=== PATIENT | female | born 1980 | race Caucasian/White ===

== ENCOUNTER 2023-05-02 00:14 | Emergency (ER) | payer BC, OTHER ==
[~2023-05-02] VITALS: Ht 160 cm; Wt 72.0 kg
[2023-05-02 00:35] VITALS: TEMP 98.2
[2023-05-02] MEDS ORDERED: CHOL20004 PO (02:12)
[2023-05-02] MEDS ORDERED: CARI1.5C PO (02:12)
[2023-05-02] MEDS ORDERED: LAMO25TA5 PO (02:12)
[2023-05-02] MEDS ORDERED: OMEP10CA5 PO (02:12)
[2023-05-02] MEDS ORDERED: LEVO75TA7 PO (02:12)
[2023-05-02] MEDS ORDERED: BUSP10TA3 PO (02:12)
[2023-05-02] MEDS ORDERED: normal saline 1000ML IV soln IVB ONE (02:20)
[2023-05-02 02:51] LABS: BASOPHILS % (AUTO) 0.4 % (0-1); EOSINOPHILS % (AUTO) 0.2 % (0-6); HEMATOCRIT 40.7 % (35.0-45.0); HEMOGLOBIN 13.4 g/dl (12.0-16.0); LYMPHOCYTES # (AUTO) 1.9 X10'3 (1.1-4.8); LYMPHOCYTES % (AUTO) 24.6 % (21-51); MEAN CORPUSCULAR HEMOGLOBIN 28.3 PG (27.0-31.0); MEAN CORPUSCULAR VOLUME 85.7 FL (78-98); MONOCYTES # (AUTO) 0.4 X10'3 (0-0.9); MONOCYTES % (AUTO) 5.4 % (2-12); NEUTROPHILS # (AUTO) 5.3 X10'3 (1.8-7.7); NEUTROPHILS % (AUTO) 69.4 % (42-75); PLATELET COUNT 356 X10'3 (140-440); RED BLOOD COUNT 4.75 X10'6 (4.20-5.60); RED CELL DISTRIBUTION WIDTH 14.8 % (11.5-14.5); WHITE BLOOD COUNT 7.7 X10'3 (4.5-11.0)
[2023-05-02 03:15] LABS: ALANINE AMINOTRANSFERASE 16 U/L (12-78); ALBUMIN 3.9 G/DL (3.4-5.0); ALBUMIN/GLOBULIN RATIO 1.1 (1.1-1.5); ALKALINE PHOSPHATASE 80 IU/L (46-116); ANION GAP 9 (8-16); ASPARTATE AMINO TRANSFERASE 12 U/L (10-37); BILIRUBIN,TOTAL 0.4 MG/DL (0.1-1.0); BLOOD UREA NITROGEN 9 MG/DL (7-18); CHLORIDE 104 MMOL/L (99-107); GLUCOSE 89 MG/DL (70-104); POTASSIUM 3.6 MMOL/L (3.5-5.1); SODIUM 140 MMOL/L (135-145); TOTAL CARBON DIOXIDE 27.1 MMOL/L (24-32); TOTAL PROTEIN 7.4 G/DL (6.4-8.2); eGFR 61 ML/MIN
[2023-05-02 03:18] LABS: LIPASE 100 U/L (73-393)
[2023-05-02 03:50] LABS: COLOR,URINE YELLOW (Yellow); GLUCOSE, URINE NEGATIVE (Neg); KETONES,URINE NEGATIVE (Neg); LEUKOCYTE ESTERASE ,URINE NEGATIVE (Neg); NITRITES, URINE NEGATIVE (Neg); OCCULT BLOOD,URINE NEGATIVE (Neg); PROTEIN,URINE NEGATIVE (Neg); UROBILINOGEN,URINE 0.2 E.U/dL (0.2-1.0)
[2023-05-02 03:51] LABS: UA COLLECTION TYPE CLN CATCH MIDSTREAM
[2023-05-02 03:56] LABS: CLARITY,URINE SLIGHTLY CLOUDY (Clear)
--- NOTE | 2023-05-02 04:00 | NUR ---
hi rejected for culture. dr abdullahi notified.
[2023-05-02 04:03] LABS: BACTERIA,URINE 2+ /HPF (Neg); MUCUS STRANDS MANY /LPF (Neg); SQUAMOUS EPITHELIAL CELL,UR MANY /LPF (FEW)
[2023-05-02] MEDS ORDERED: CEPH-585 PO (04:36)
[2023-05-02 04:45] VITALS: BP 111/68; PULSE 72; RESP 18; O2SAT 100
== END 2023-05-02 04:48 | disposition home or self-care (01) ==
LOC: ER 00:15
DX: N39.0 Urinary tract infection, site not specified (principal); F17.200 Nicotine dependence, unspecified, uncomplicated; Z88.0 Allergy status to penicillin; Z91.018 Allergy to other foods; Z79.2 Long term (current) use of antibiotics; Z79.899 Other long term (current) drug therapy
CPT/HCPCS: 36415; 71045; 80053; 81001; 83690; 84484; 85025; 96360; 99284; J7030

== ENCOUNTER 2023-07-07 02:01 | Emergency (ER) | payer OTHER, BC ==
[~2023-07-07] VITALS: Ht 160 cm; Wt 72.7 kg
[~2023-07-07 02:01] MED LIST: BUSP10TA3 PO; CARI1.5C PO; CHOL20004 PO; LAMO25TA5 PO; LEVO75TA7 PO; OMEP10CA5 PO
[2023-07-07 02:10] VITALS: BP 117/65; PULSE 79; RESP 18; TEMP 98.5; O2SAT 99
[2023-07-07] MEDS ORDERED: cefuroxime axetil 250mg tablet PO ONE (04:15)
[2023-07-07] MEDS ORDERED: clindamycin 150mg capsule PO ONE (04:15)
[2023-07-07] MEDS ORDERED: CEFU250T95 PO (04:19)
[2023-07-07] MEDS ORDERED: CLIN150C2 PO (04:19)
[2023-07-07] MEDS ORDERED: TETanus/Pertussis (Acell)/Diphther VAC/PF (Tdap-Adult) 0.5ml syringe IMVAC ONE (04:20)
== END 2023-07-07 04:59 | disposition home or self-care (01) ==
LOC: ER 02:03
DX: S51.851A Open bite of right forearm, initial encounter (principal); Y04.1XXA Assault by human bite, initial encounter; Y93.89 Activity, other specified; Y92.89 Other specified places as the place of occurrence of the external cause; Y99.8 Other external cause status
CPT/HCPCS: 90471; 90715; 99283